=== PATIENT | female | born 2005 | race Caucasian/White ===

== ENCOUNTER 2023-09-08 16:50 | Emergency (ER) | payer OTHER ==
[~2023-09-08] VITALS: Ht 154.9 cm; Wt 75.0 kg
[~2023-09-08 16:50] MED LIST: NOCURR
[2023-09-08 16:57] VITALS: TEMP 98
[2023-09-08 17:42] LABS: APPEARANCE,URINE HAZY (CLEAR); BILIRUBIN,URINE NEGATIVE (NEGATIVE); COLOR,URINE YELLOW (YELLOW); GLUCOSE, URINE (UA) NEGATIVE (NEGATIVE); KETONES,URINE 40-60 mg/dL (NEGATIVE); LEUKOCYTE ESTERASE ,URINE MODERATE (NEGATIVE); NITRATE,URINE NEGATIVE (NEGATIVE); OCCULT BLOOD,URINE SMALL (NEGATIVE); PROTEIN,URINE 30-70 mg/dL (NEGATIVE); SPECIFIC GRAVITIY, URINE 1.032 (1.003-1.030); UROBILINOGEN,URINE <=1.0 mg/dL (<=1.0)
[2023-09-08 17:52] LABS: BASOPHILS % (AUTO) 0.2 % (0.0-2.0); EOSINOPHILS % (AUTO) 1.1 % (1.0-6.0); HEMATOCRIT 41.6 % (36-46); HEMOGLOBIN 13.7 g/dL (12.0-16.0); LYMPHOCYTES # (AUTO) 0.5 K/uL (1.0-4.8); LYMPHOCYTES % (AUTO) 5.5 % (22.0-44.0); MEAN CORPUSCULAR HEMOGLOBIN 28.9 pg (26.0-34.0); MEAN CORPUSCULAR VOLUME 87 fL (80-100); MONOCYTES # (AUTO) 0.4 K/uL (0.1-1.0); MONOCYTES % (AUTO) 4.4 % (2.0-9.0); NEUTROPHILS # (AUTO) 8.2 K/uL (1.8-7.7); PLATELET COUNT (AUTO) 338 K/uL (150-450); RED BLOOD CELL COUNT(AUTO) 4.76 MIL/uL (4.00-5.20); RED CELL DISTRIBUTION WIDTH 13.3 % (11.5-14.5); WHITE BLOOD COUNT (AUTO) 9.3 K/uL (4.5-11.0)
[2023-09-08 17:55] LABS: NEUTROPHILS % (AUTO) 88.8 % (40.0-70.0)
[2023-09-08 17:59] LABS: ANION GAP 12 mmol/L (8-16); CALCIUM, TOTAL 9.3 mg/dL (8.8-10.5); CARBON DIOXIDE 23 mmol/L (22-29); CHLORIDE 102 mmol/L (98-107); CREATININE 0.48 mg/dL (0.60-1.30); GLOMERULAR FILTR. RATE CALC > 60 mL/min (>60); GLUCOSE,RANDOM 99 mg/dL (70-110); POTASSIUM 3.5 mmol/L (3.5-5.1); SODIUM SERUM 137 mmol/L (136-145); UREA NITROGEN, BLOOD 12 mg/dL (7-18)
[2023-09-08 18:12] LABS: HCG,QUANTITATIVE < 1 mIU/mL (0-6); LIPASE 51 U/L (16-77)
[2023-09-08 18:19] LABS: SQUAMOUS EPITHELIAL CELL,UR Many /LPF (None Seen)
[2023-09-08 18:20] LABS: BACTERIA,URINE Many /HPF (None Seen); RBC,URINE 0-2 /HPF (0-2)
[2023-09-08] MEDS: SODIUM CHLORIDE 0.9% 2,000 ML IV ONE (19:43)
[2023-09-08] MEDS: KETOROLAC TROMETHAMINE 30 MG/ML VIAL IVP ONE (19:45)
[2023-09-08] MEDS: ONDANSETRON HCL 4 MG/2 ML VIAL IVP ONE (19:45)
[2023-09-08] MEDS: MORPHINE SULFATE 2 MG/ML SYRINGE IVP ONE (19:47)
[2023-09-08] MEDS: DIPHENOXYLATE/ATROP 2.5-0.025 MG TABLET PO ONE (19:51)
[2023-09-08] MEDS ORDERED: ONDA-104 PO (21:18)
[2023-09-08] MEDS ORDERED: DIPH-1130 PO (21:18)
[2023-09-08] MEDS ORDERED: ACET-66 PO (21:18)
[2023-09-08 21:25] VITALS: BP 111/74; PULSE 95; RESP 18
== END 2023-09-08 21:00 | disposition home or self-care (01) ==
LOC: EMS 16:50
DX: K52.9 Noninfective gastroenteritis and colitis, unspecified (principal)
CPT/HCPCS: 99284; 96374; 96375; 96361; 80048; 81001; 83690; 84702; 85025; 36415; 87086; 87186; J1885; J2270; J2405; J7030